=== PATIENT | male | born 1980 | race Caucasian/White ===

== ENCOUNTER 2016-03-08 10:19 | Outpatient (CLI) | payer OTHER ==
[2014-05-02 11:02] VITALS: BP 124/78
== END 2016-03-08 10:20 ==
LOC: LAB 10:19
PROVIDERS: ATTEND Family Medicine
DX: Z00.00 Encounter for general adult medical examination without abnormal findings (principal)
CPT/HCPCS: 36415; 80061; 82947

== ENCOUNTER 2016-04-12 07:43 | Emergency (ER) | payer OTHER ==
--- NOTE | 2016-04-12 07:58 | ED Physician Documentation ---
General Adult - HISTORIAN Historian: patient - HPI Stated Complaint: back pain Chief Complaint: General Adult Onset: days ago (1) Timing: still present Severity: moderate Further Comments: yes (Pt is a 36 yo male with low back pain that began yesterday after trying to lift a heavy lid off a freezer. Pain did not start immediately but came on gradually after the episode.) - ROS CONST: no problems EYES/ENT: none CVS/RESP: none GI/: none MS/SKIN/LYMPH: back pain - PAST HX Past History: other (back pain) Allergies/Adverse Reactions: Allergies Allergy/AdvReac Type Severity Reaction Status Date / Time No Known Allergies Allergy Verified 05/02/14 11:02 Home Medications: Ambulatory Orders Medication Instructions Recorded Naproxen Sodium [Naprosyn] 550 mg PO BID PRN #30 tablet 05/02/14 - SOCIAL HX Smoking History: non-smoker - FAMILY HX Family History: No - VITAL SIGNS Vital Signs: Vital Signs Temp Pulse Resp BP Pulse Ox 124/78 05/02/14 12:50 - REVIEWED ASSESSMENTS Nursing Assessment Reviewed: Yes Vitals Reviewed: Yes Progress - Progress Progress: Toradol 60 mg IM Diazepam 10 mg IM Recommend Aleve bid or tid. [Pt is no longer taking Rx'd Naproxen] ED Results Lab/Radiology - Orders Orders: ED Orders Category Date Time Status Diazepam [Valium] Med 04/12/16 07:55 Discontinued 10 mg IM NOW ONE Ketorolac Tromethamine [Toradol] Med 04/12/16 07:54 Discontinued 60 mg IM NOW ONE General Adult Physical Exam - PHYSICAL EXAM GENERAL APPEARANCE: mild distress NECK: normal inspection, supple RESPIRATORY: no resp distress, chest non-tender, breath sounds normal CVS: reg rate & rhythm, heart sounds normal BACK: normal inspection, other (para-lumbar muscle spasm) EXTREMITIES: non-tender, normal range of motion, no evidence of injury, other ( DTR's wnl) NEURO: oriented X3, motor nml, sensation nml Discharge Clincal Impression: Back pain Qualifiers: Back pain location: low back pain Chronicity: unspecified Back pain laterality : unspecified Sciatica presence: without sciatica Qualified Code(s): M54.5 - Low back pain Referrals: Terence Anderson MD [Primary Care Provider] - Home Medications: Ambulatory Orders Naproxen Sodium [Naprosyn] 550 mg PO BID PRN #30 tablet 05/02/14 Condition: Good Disposition: 01 HOME, SELF-CARE Decision to Admit: NO Decision Time: 08:53
[2016-04-12] MEDS: KETOROLAC TROMETHAMINE 60 MG/2 ML VIAL IM ONE (08:05)
[2016-04-12] MEDS: DIAZEPAM 5 MG/ML DISP.SYRIN IM ONE (08:05)
[2016-04-12 09:50] VITALS: BP 112/70
== END 2016-04-12 08:55 | disposition home or self-care (01) ==
LOC: ED 07:43
DX: M54.5 Low back pain (principal)
CPT/HCPCS: J1885; J3360; 96372; 99283

== ENCOUNTER 2017-08-10 08:10 | Emergency (ER) | payer OTHER ==
[2017-08-10] MEDS: LIDOCAINE 1%/EPINEPHRINE 20ML VIAL IJ ONE (08:46)
--- NOTE | 2017-08-10 08:56 | ED Physician Documentation ---
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 Last tetanus 3 years ago.) - ROS CONST: no problems EYES/ENT: none CVS/RESP: none GI/: none MS/SKIN/LYMPH: none NEURO/PSYCH: denies: headache - PAST HX Past History: none Surgeries/Procedures: none Immunizations: tetanus (2014) Allergies/Adverse Reactions: Allergies Allergy/AdvReac Type Severity Reaction Status Date / Time No Known Allergies Allergy Verified 08/10/17 08:26 Home Medications: Ambulatory Orders Medication Instructions Recorded NK [NK] 08/10/17 - SOCIAL HX Smoking History: cigarettes - FAMILY HX Family History: No - VITAL SIGNS Vital Signs: Vital Signs Temp Pulse Resp BP Pulse Ox 68 17 110/76 98 08/10/17 08:15 08/10/17 08:15 08/10/17 09:05 08/10/17 08:15 - REVIEWED ASSESSMENTS Nursing Assessment Reviewed: Yes Vitals Reviewed: Yes Procedures Wound Location: lower extremity (left leg) Wound Length: 1cm Wound's Depth, Shape: linear Wound Explored: no foreign body removed Irrigated w/ Saline (ccs): 100 Betadine Prep?: No (chlorhexidine) Anesthesia: Lidocaine w/ Epi Volume of Anesthetic: 4 Wound Repaired With: sutures Suture Size/Type: 4:0 Number of Sutures: 2 Layer Closure?: No Progress: Patient tolerated well, edges well approximated. Reviewed discharge instructions, verbalized understanding. ED Results Lab/Radiology - Orders Orders: ED Orders Category Date Time Status Cleanse with NS and Chlorhexid 1T Care 08/10/17 08:25 Active Lidocaine 1%/Epinephrine [Xylocaine 1%-EPI 1:100,000] Med 08/10/17 08:24 Discontinued 5 ml IJ NOW ONE General Adult Physical Exam - PHYSICAL EXAM GENERAL APPEARANCE: mild distress EENT: eye inspection normal, RICHI RESPIRATORY: no resp distress CVS: reg rate & rhythm SKIN: warm/dry, normal color, other (1 cm laceratio to Left lower leg) EXTREMITIES: non-tender, normal range of motion, no evidence of injury, no edema , J, [employer] NEURO: oriented X3, motor nml, sensation nml, mood/affect nml Discharge Clincal Impression: Laceration of leg Qualifiers: Encounter type: initial encounter Laterality: left Qualified Code(s): S81.812A - Laceration without foreign body, left lower leg, initial encounter Referrals: Terence Anderson MD [Primary Care Provider] - 2 Days Additional Instructions: Keep the wound clean and dry until it has healed. You can wash or shower after 24 hours. Do not soak the wound in water and make sure it is dry afterwards (gently pat the area dry with a clean towel). Do not get into a swimming pool, hot tub, ortiz or river until your stitches are removed. To remove your dressing, gently pull it off. If needed, you can dampen it with water then gently pull it off. Clean the laceration twice a day with hibiclens and rinse with water clean away any scabbed area Apply thin coat of antibiotic ointment after cleaning the wound. Cover with non-adherent bandage if able. If you have pain, take simple pain relief medication such as Tylenol or ibuprofen. If bandages or dressings get wet, they will need to be changed. Call your doctor for any signs of symptom of infection redness, drainage, pain. Have your stitches removed at your doctors office in 7-10 days. Condition: Stable Disposition: 01 HOME, SELF-CARE Decision to Admit: NO Decision Time: 08:55
[2017-08-10 09:07] VITALS: BP 110/76
== END 2017-08-10 09:05 | disposition home or self-care (01) ==
LOC: ED 08:10
DX: S81.812A Laceration without foreign body, left lower leg, initial encounter (principal); W26.0XXA Contact with knife, initial encounter; Y92.9 Unspecified place or not applicable; Y93.9 Activity, unspecified; Y99.9 Unspecified external cause status
CPT/HCPCS: 12001; 96372; J7030